=== PATIENT | male | born 1975 | race Caucasian/White ===

== ENCOUNTER 2016-12-30 16:41 | Emergency (ER) | payer SELFPAY ==
[~2016-12-30] VITALS: Wt 78.0 kg
--- NOTE | 2016-12-30 17:31 | RADRPT ---
PROCEDURE: CT Brain without contrast. CLINICAL INDICATION: Altered mental status. TECHNIQUE: A CT of the brain was performed on a [employer] Control 64-slice CT scanner utilizing axial imaging from the skull base through the vertex without IV contrast. Multiplanar reformatted images were made. Images were reviewed on a PACS workstation. The CTDIvol is 40.33 mGy and the DLP is 818 .51 mGycm. One or the following dose reduction techniques were used: -Automated exposure control. -Adjustment of the mA and/or KV according to patient's size. -Use of iterative reconstruction technique. COMPARISON: None FINDINGS: There is no intracranial hemorrhage, mass effect, or midline shift. No extra-axial fluid collection is seen. The ventricles and sulci are normal in size and configuration. The density of the brain is normal, and the kemp white matter differentiation appears well-preserved. The visualized paranasal sinuses and osseous structures are grossly unremarkable. IMPRESSION: 1. No acute intracranial process identified. RPTAT: [facility] Physician Marion Date Time Electronically viewed and signed by Physician Marion on 12/30/2016 17:31 /
--- NOTE | 2016-12-30 19:22 | ERD ---
ER Documentation Chief Complaint Chief Complaint ETOH HPI Patient is a 41-year-old male with high cholesterol presents with alcohol intoxication. The patient was brought in by ambulance. A bystander called 911 and then started CPR because he would not wake up. The patient is now awake and answering questions. He has no complaints. He admits to drinking alcohol. He is well-known to our paramedics. His sugar was 105 by paramedics. Upon review of old medical records this is the patient's first visit to our emergency department. ROS All systems reviewed and are negative except as per history of present illness. Medications Home Meds No Active Prescriptions or Reported Meds Allergies Allergies: Coded Allergies: No Known Allergy (Unverified , 12/30/16) PMhx/Soc Medical and Surgical Hx: pt denies Medical Hx, pt denies Surgical Hx Hx Alcohol Use: Yes (ETOH) Hx Substance Use: No Hx Tobacco Use: No Smoking Status: Never smoker FmHx Family History: No diabetes Physical Exam Vitals Vital Signs Date Time Temp Pulse Resp B/P Pulse Ox O2 Delivery O2 Flow Rate FiO2 12/30/16 16:46 98.1 18 89/102 64 Physical Exam Const: No acute distress Head: Atraumatic Eyes: Normal Conjunctiva ENT: Normal External Ears, Nose and Mouth. Neck: Full range of motion..~ No meningismus. Resp: Clear to auscultation bilaterally Cardio: Regular rate and rhythm, no murmurs Abd: Soft, non tender, non distended. Normal bowel sounds Skin: No petechiae or rashes Back: No midline or flank tenderness Ext: No cyanosis, or edema Neur: Awake and alert, appears intoxicated Psych: Normal Mood and Affect Procedures/MDM Accu-Chek was [address] brain is normal per radiology. Smoking Cessation Therapy: Pt. was lectured for greater than 3 minutes on the health risks of continued smoking and the benefits of cessation. Patient is a 41-year-old male who presents with alcohol intoxication. He has a stable gait and no complaints here in the emergency department. CT scan of the brain was negative. Accu-Chek was normal. I believe outpatient management is appropriate. He can return for any worsening symptoms. The patient was instructed not to drink alcohol to excess in the future or to smoke. Departure Diagnosis: Primary Impression: Alcoholic intoxication Complication of substance-induced condition: uncomplicated Qualified Code: F10.920 - Alcoholic intoxication without complication Condition: Fair Patient Instructions: Alcohol Intoxication Ref[facility]: [facility] Usted se llamas hecho un examen mdico de control que le indica que no est en tamra condicin que requiera tratamiento urgente en el Departamento de Emergencia. Un estudio ms profundo y el tratamiento de baires condicin pueden esperar sin ningn riesgo hasta que usted sea atendida/o en el consultorio de baires mdico o tamra cl leticia. Es responsabilidad suya arreglar tamra celso para el seguimiento del floresita. MANEJO DE CONDICIONES NO URGENTES EN EL FUTURO 1) Si usted tiene un mdico de atencin primaria: Usted debera llamar a baires mdico de atencin primaria antes de venir al departamento de emergencia. Despus de las horas de consultorio, baires doctor o baires asociado/a est disponible por telfono. El mdico o enfermero de jeffery en el servicio telefnico puede asesorarle por albert medio para atender el problema, o floresita contrario se puede programar tamra celso. 2) Si usted no tiene un mdico de atencin primaria: Llame al mdico o clnica de referencia que aparece abajo josé las horas de consultorio para hacer tamra celso para que le vean. CLINICAS: [facility] [phone] [facility] [facility] [phone] [facility]. [facility] [phone] [facility]. [facility] [phone] [facility]. [place] [id number] [phone] [facility]. [phone] Additional Instructions: Llame al doctor MAANA y ramiro tamra CELSO PARA DENTRO DE 1-2 KANG.Dgale a la secretaria que nosotros le instruimos hacer esta celso.Avise o llame si baires condicin se empeora antes de la celso. Regresa aqui si peor o no mejor. YVON BERNAL MD Dec 30, 2016 19:22
== END 2016-12-30 17:45 | disposition home or self-care (01) ==
LOC: E/R 16:41
DX: F10.920 Alcohol use, unspecified with intoxication, uncomplicated (principal); R41.82 Altered mental status, unspecified
CPT/HCPCS: 70450